=== PATIENT | male | born 1970 | race Caucasian/White ===

== ENCOUNTER 2017-07-24 21:34 | Emergency (ER) | payer BC ==
[~2017-07-24] VITALS: Ht 185.4 cm; Wt 92.5 kg
[2017-07-24 22:10] VITALS: BP 125/68
[2017-07-24] MEDS ORDERED: Augmentin 875mg Tab ORAL ONE (22:15)
[2017-07-24 22:25] VITALS: BP 124/69
[2017-07-24] MEDS ORDERED: ACETAMINOPHEN-1 EAC1 ORAL (22:29)
[2017-07-24] MEDS ORDERED: AUGMENTIN 875-1 EAC1 ORAL (22:29)
[2017-07-24 22:32] VITALS: BP 124/69
--- NOTE | 2017-07-25 05:43 | Emergency Room Report ---
History of Present Illness General Chief Complaint: Skin Rash/Abscess Source: Patient Present Illness HPI 46-year-old male presents ED with pain and swelling to left side of face 1 day. Started out as a small pimple which got progressively larger. Pain is throbbing, 7 out of 10, nonradiating. Denies fevers or chills. Denies any discharge. Denies any tooth pain. Denies any neck stiffness. No other aggravating relieving factors. Denies any other associated symptoms Allergies: Coded Allergies: No Known Allergies (Unverified , 07/24/17) Patient History Past Medical History: none Past Surgical History: none Pertinent Family History: none Social History: Denies: smoking, alcohol use, drug use Immunizations: UTD Reviewed Nursing Documentation: PMH: Agreed, PSxH: Agreed Nursing Documentation-PMH Past Medical History: No Stated History Review of Systems All Other Systems: negative except mentioned in HPI Physical Exam Vital Signs Date Time Temp Pulse Resp B/P (MAP) Pulse Ox O2 Delivery O2 Flow Rate FiO2 07/24/17 21:47 100.0 98 18 126/63 99 Room Air 100.0 Sp02 EP Interpretation: reviewed, normal General Appearance: no apparent distress, alert, GCS 15, non-toxic Head: normocephalic Eyes: bilateral eye normal inspection, bilateral eye PERRL ENT: normal ENT inspection Neck: full range of motion, supple/symm/no masses Respiratory: normal inspection Cardiovascular #1: normal inspection Gastrointestinal: normal inspection Rectal: deferred Genitourinary: no CVA tenderness Musculoskeletal: normal inspection Neurologic: alert, oriented x3, responsive, motor strength/tone normal, sensory intact, speech normal Psychiatric: judgement/insight normal, memory normal, mood/affect normal, no suicidal/homicidal ideation Skin: other - swelling/induration to L cheek. no fluctuance. no discharge Lymphatic: normal inspection Medical Decision Making Diagnostic Impression: Primary Impression: Facial cellulitis ER Course Hospital Course 46-year-old male presents to ED with pain/swelling to L cheek Differential diagnoses include: Cellulitis, dermatitis, insect bite, abscess Clinical course Patient placed on stretcher. After initial history, physical exam reveals a male in no acute distress. On exam there is swelling and induration to left cheek. No fluctuance. No discharge. No evidence of dental involvement. Likely cellulitis. Do not believe IUD is indicated at this time. We'll treat with antibiotics but recommend close follow-up with PMD and/or return to ED if gets progressively bigger Patient given Augmentin ED Diagnosis - facial cellulitis stable and discharged to home with prescription for Augmentin, Tylenol #3. warm compresses. Instructed to followup with PMD. Instructed return to ED if symptoms recur or worsen Last Vital Signs Date Time Temp Pulse Resp B/P (MAP) Pulse Ox O2 Delivery O2 Flow Rate FiO2 07/24/17 22:32 99.8 84 16 124/69 99 Room Air 99.8 Status: improved Disposition: HOME, SELF-CARE Condition: Stable Scripts Acetaminophen With Codeine (T#3) (TYLENOL #3 TAB*) Y Tab 1 TAB ORAL Q8H Y for For Pain, #20 TAB Prov: JUSTYNA BIANCHI M.D. 07/24/17 Amoxicillin/Potassium Clav 875-125* (AUGMENTIN 875-125 TABLET*) 1 Each Tablet 1 TAB ORAL TWICE A DAY for 10 Days, #20 TAB Prov: JUSTYNA BIANCHI M.D. 07/24/17 Referrals: NON PHYSICIAN (PCP) Patient Instructions: Cellulitis, [id number] JUSTYNA BIANCHI M.D. Jul 25, 2017 05:42
== END 2017-07-24 22:50 | disposition home or self-care (01) ==
LOC: EMR 22:05
DX: L03.211 Cellulitis of face (principal)
CPT/HCPCS: 99284

== ENCOUNTER 2017-08-12 14:23 | Emergency (ER) | payer BC ==
[~2017-08-12] VITALS: Ht 185.4 cm; Wt 95.3 kg
[~2017-08-12 14:23] MED LIST: ACETAMINOPHEN-1 EAC1 ORAL; AUGMENTIN 875-1 EAC1 ORAL
[2017-08-12] MEDS ORDERED: BENADRYL25 MG ORAL (14:57)
[2017-08-12] MEDS ORDERED: PREDNISONE20 MG ORAL (14:57)
[2017-08-12] MEDS ORDERED: DOXYCYCLINE MO100 MG ORAL (14:58)
[2017-08-12 15:03] VITALS: BP 118/67
--- NOTE | 2017-08-12 15:29 | Emergency Room Report ---
History of Present Illness General Chief Complaint: Skin Rash/Abscess Source: Patient Present Illness HPI This is a 46-year-old male who presented after increased lip swelling. Patient gradual onset of symptoms over the past few days. Patient recent the similar symptoms and was previously taking Augmentin. The patient denied any current fever. He reported having increased facial swelling. Allergies: Coded Allergies: No Known Allergies (Unverified , 07/24/17) Patient History Past Medical History: see triage record Reviewed Nursing Documentation: PMH: Agreed; PSxH: Agreed Nursing Documentation-PMH Past Medical History: No Stated History Review of Systems All Other Systems: negative except mentioned in HPI Physical Exam Vital Signs Date Time Temp Pulse Resp B/P (MAP) Pulse Ox O2 Delivery O2 Flow Rate FiO2 08/12/17 14:26 98.2 78 18 121/72 97 Room Air 98.2 General Appearance: well appearing, no apparent distress, alert, GCS 15 Head: normocephalic, atraumatic ENT: hearing grossly normal, normal voice, other - lip swelling Neck: full range of motion, supple Respiratory: no respiratory distress, speaking full sentences Musculoskeletal: no calf tenderness Neurologic: normal gait Psychiatric: mood/affect normal Skin: other - right upper extremity papular rash. Medical Decision Making Diagnostic Impression: Primary Impression: Allergic angioedema ER Course Patient presented for facial swelling. Differential diagnosis included was not limited to abscess, angioedema, allergic reaction, foreign body, among others. Patient has a benign exam and does not appear to require any further imaging or laboratory testing at this time. The patient does not appear to have any respiratory distress. Lip was noted to have isolated swelling without any fluctuance. The patient was given prescriptions for Benadryl as well as prednisone. He was advised to discontinue ibuprofen use. He is given a prescription of doxycycline for what appears to be a folliculitis to his right upper extremity. The patient is advised to follow up with primary care doctor in 1-2 days. Patient is advised to return if any worsening condition or if any changes in status that are concerning. This report is dictated with [employer] airport screener software which may occasionally lead to discrepancies related to use of this software. Last Vital Signs Date Time Temp Pulse Resp B/P (MAP) Pulse Ox O2 Delivery O2 Flow Rate FiO2 08/12/17 15:03 79 16 118/67 97 Room Air Status: improved Disposition: HOME, SELF-CARE Condition: Stable Scripts Doxycycline Monohydrate* (DOXYCYCLINE MONOHYDRATE*) 100 Mg Capsule 100 MG ORAL Q12H, #14 CAP 0 Refills Prov: Kris De La Rosa 08/12/17 Prednisone* (PREDNISONE*) 20 Mg Tablet 40 MG ORAL DAILY, #10 TAB Prov: Kris De La Rosa 08/12/17 Diphenhydramine Hcl* (BENADRYL*) 25 Mg Capsule 50 MG ORAL Q6H PRN for Itching, #30 CAP Prov: Kris De La Rosa 08/12/17 Patient Instructions: Angioedema Kris De La Rosa Aug 12, 2017 15:29
== END 2017-08-12 15:15 | disposition home or self-care (01) ==
LOC: EMR 15:10
DX: T78.3XXA Angioneurotic edema, initial encounter (principal); R21 Rash and other nonspecific skin eruption
CPT/HCPCS: 99284

== ENCOUNTER 2017-10-18 05:42 | Inpatient (IN) | payer OTHER ==
[2017-10-18] VITALS (15 sets, daily range): BP systolic 123–158; BP diastolic 79–93
[~2017-10-18] VITALS: Ht 185.4 cm; Wt 95.3 kg
[~2017-10-18 05:42] MED LIST changes: +BENADRYL25 MG ORAL; +DOXYCYCLINE MO100 MG ORAL; +PREDNISONE20 MG ORAL
[2017-10-18] MEDS ORDERED: Vancomycin 1gm inj IVPB ONE (06:53)
[2017-10-18] MEDS ORDERED: Pantoprazole Inj ONE (06:54)
[2017-10-18] MEDS ORDERED: TESTOSTERO200 MG/1 M IM (06:58)
[2017-10-18] MEDS ORDERED: LEXAPRO20 MG ORAL (06:58)
[2017-10-18] MEDS ORDERED: Vancomycin 1 GM in NS 275 ML IVPB ONE (07:00)
[2017-10-18] MEDS ORDERED: Pantoprazole Inj IVP ONE (07:00)
[2017-10-18] MEDS ORDERED: Midazolam 2mg/2ml Inj ONE (07:04)
[2017-10-18] MEDS ORDERED: fentaNYL 100 mcg/2 mL IV ONE ×2 (07:04→15:04)
[2017-10-18] MEDS ORDERED: Lidocaine 1% MPF 10mg/ml 5ml ONE (07:05)
[2017-10-18] MEDS ORDERED: EPINEPHrine 1mg/1ml Amp ONE (07:06)
[2017-10-18] MEDS ORDERED: Thrombin 5000 units spray kit TOPIC ONE (07:06)
[2017-10-18] MEDS ORDERED: Heparin 1000 units/ml 1ml Vial ONE (07:06)
[2017-10-18] MEDS ORDERED: Thrombin 5000 units TOPIC ONE ×4 (07:07→11:52)
[2017-10-18] MEDS ORDERED: Bupivacaine 0.5% Inj 30 ml vial INJ ONE (07:07)
[2017-10-18] MEDS ORDERED: Bacitracin 50000 Units Vial ONE ×2 (07:07→09:55)
[2017-10-18] MEDS ORDERED: Gelfoam Absorbable 1gm powder pkt TOPIC ONE (07:09)
--- NOTE | 2017-10-18 07:55 | Pre-Procedure Note/Attestation ---
Pre-Procedure Note/Attestation Complete Prior to Procedure Planned Procedure: bilateral Procedure Narrative: Redo posterior lumbar decompression bilateral at L4-5, with interbody cage and pedicle screw fixation at L4-5, posterolateral arthrodesis, use of allograft, autograft and iliac crest bone marrow aspirate and removal of interspinous device at L4-5 Attestation I attest that I discussed the nature of the procedure; its benefits; risks and complications; and alternatives (and the risks and benefits of such alternatives ), prior to the procedure, with the patient (or the patient's legal self pay representative). I attest that, if there was a reasonable possibility of needing a blood transfusion, the patient (or the patient's legal self pay representative) was given the [place] Department [employer] Services standardized written summary, pursuant to the Wilfred Frankie Blood Safety Act ([place] Health and Safety Code # 1645, as amended). I attest that I re-evaluated the patient just prior to the surgery and that there has been no change in the patient's H&P, except as documented below: ERICKA MAX Oct 18, 2017 07:55
--- NOTE | 2017-10-18 07:57 | Anethesia Preoperative Eval ---
Anesthesia Pre-op PMH/ROS General Date of Evaluation: Oct 18, 2017 Time of Evaluation: 07:22 Anesthesiologist: Rosa ASA Score: ASA 2 Mallampati Score Class I : Soft palate, uvula, fauces, pillars visible Class II: Soft palate, uvula, fauces visible Class III: Soft palate, base of uvula visible Class IV: Only hard plate visible Mallampati Classification: Class II Surgeon: Vicki Diagnosis: Lumbar radiculopathy Surgical Procedure: Revision of posterior lumbar fusion L4-L5 with hardwear removal Anesthesia History: none Family History: no anesthesia problems Allergies: Coded Allergies: No Known Allergies (Unverified , 07/24/17) Medications: see eMAR Past Medical History Cardiovascular: Denies: HTN, CAD, MO, valve dz, arrhythmia, other Pulmonary: Denies: asthma, COPD, SLY, other Gastrointestinal/Genitourinary: Reports: GERD - mild; Denies: CRI, ESRD, other Neurologic/Psychiatric: Reports: depression/anxiety; Denies: dementia, CVA, TIA, other Endocrine: Denies: DM, hypothyroidism, steroids, other HEENT: Denies: cataract (L), cataract (R), glaucoma, POARCH (L), POARCH (R), other Hematology/Immune: Denies: anemia, DVT, bleeding disorder, other Musculoskeletal/Integumentary: Denies: OA, RA, DJD, DDD, edema, other PMH Narrative: as above PSxH Narrative: ACDF, Lumbar spine fusion septoplasty Anesthesia Pre-op Phys. Exam Physician Exam Last Vital Signs Date Time Temp Pulse Resp B/P (MAP) Pulse Ox O2 Delivery O2 Flow Rate FiO2 10/18/17 06:29 97.3 73 18 123/79 96 Room Air 97.3 Constitutional: NAD Neurologic: CN 2-12 intact Cardiovascular: RRR, no M/R/G Respiratory: CTA Gastrointestinal: S/NT/ND Airway Exam Mallampati Score: Class II MO: full Neck: stiff, s/p fusion ROM: limited Teeth: missing Dentures: no upper, no lower Anesthesia Pre-op A/P Labs see chart Studies Pre-op Studies: EKG - NSR, CXR - WNL Risk Assessment & Plan Assessment: ASA 2 Plan: GA with ETT neuromonitoring Status Change Before Surgery: No Pre-Antibiotics Drug: Vancomycin 1gr. Given Within 1 Hr of Incision: Yes Time Given: 08:12 Faraz Lee MD Oct 18, 2017 07:57
[2017-10-18] MEDS ORDERED: Zemuron 50mg/5ml Inj IV ONE (08:00)
[2017-10-18] MEDS ORDERED: LR 1000ml ONE (08:00)
[2017-10-18] MEDS ORDERED: Sterile Water Irrig 1000ml IRRIG ONE (08:00)
[2017-10-18] MEDS ORDERED: NS Irrig 1000ml ONE (08:00)
[2017-10-18] MEDS ORDERED: Propofol 1,000mg/ 100ml btl IV ONE (08:00)
[2017-10-18] MEDS ORDERED: Dexamethasone 4mg/ml vial ONE (08:42)
[2017-10-18] MEDS ORDERED: Glycopyrrolate 0.2mg/ml 1ml Vial ONE (09:08)
[2017-10-18] MEDS ORDERED: Morphine Sulfate 10mg/ml Inj ONE (09:08)
[2017-10-18] MEDS ORDERED: Sodium Chloride 10ml vial INJ ONE (09:08)
[2017-10-18] MEDS ORDERED: LR 1000ml 1,000 ML IVLG SCH ×2 (09:21→16:45)
[2017-10-18] MEDS ORDERED: DiphenhydrAMINE 50mg/ml Inj IVP PRN ×3 (09:30→16:45)
[2017-10-18] MEDS ORDERED: Midazolam 2mg/2ml Inj IVP PRN ×2 (09:30→16:45)
[2017-10-18] MEDS ORDERED: Metoclopramide 10mg/2ml Inj IVP PRN ×2 (09:30→16:45)
[2017-10-18] MEDS ORDERED: Ketorolac 30mg Inj IV PRN ×2 (09:30→16:45)
[2017-10-18] MEDS ORDERED: fentaNYL 100 mcg/2 mL IV PRN ×2 (09:30→16:45)
[2017-10-18] MEDS ORDERED: Meperidine 50mg/ml Inj(FOR RIGORS ONLY) IV PRN ×2 (09:30→16:45)
[2017-10-18] MEDS ORDERED: Acetaminophen (Non formulary) 100 ML IV ONE (09:30)
[2017-10-18] MEDS ORDERED: Propofol 200mg/20ml IV ONE ×6 (10:15→14:23)
[2017-10-18] MEDS ORDERED: Ketorolac 30mg Inj ONE (10:28)
[2017-10-18] MEDS ORDERED: Bacitracin Oint 15gm Tube TOPIC ONE (10:55)
[2017-10-18] MEDS ORDERED: Rate Change PCA 1 Each MISC PRN (16:00)
[2017-10-18] MEDS ORDERED: Morphine Sulfate 2mg/ml Inj IVP PRN (16:00)
[2017-10-18] MEDS ORDERED: LORazepam 1mg tab ORAL PRN (16:00)
[2017-10-18] MEDS ORDERED: Naloxone 0.4mg/ml Inj IVP PRN (16:00)
--- NOTE | 2017-10-18 16:34 | Immediate Post-Op Evaluation ---
Immediate Post-Op Evalulation Immediate Post-Op Evalulation Procedure: Revision of L4-L5 fusion with decompression and removal of retained hardwea Date of Evaluation: Oct 18, 2017 Time of Evaluation: 16:33 IV Fluids: 1600 Blood Products: none Estimated Blood Loss: 300 Urinary Output: 700 Blood Pressure Systolic: 140 Blood Pressure Diastolic: 82 Pulse Rate: 88 Respiratory Rate: 20 O2 Sat by Pulse Oximetry: 100 Temperature (Fahrenheit): 98.8 Pain Score (1-10): 2 Nausea: No Vomiting: No Complications none Patient Status: reacts, patent, extubated, none Hydration Status: adequate Faraz Lee MD Oct 18, 2017 16:34
[2017-10-18] MEDS: PCA Morphine 1mg/ml 30 ML IV PRN (16:51)
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
[2017-10-18] MEDS ORDERED: Milk of Magnesia 30ml Ud ORAL PRN (17:00)
[2017-10-18] MEDS ORDERED: traMADol 50mg tab ORAL PRN (17:00)
[2017-10-18] MEDS ORDERED: HYDROcodone/Acetamin 7.5/325 tab ORAL PRN ×2 (17:00)
--- NOTE | 2017-10-18 17:28 | General Progress Note ---
Progress Note Progress Note Neurosurgery S/ Comfortable. Right shoulder feels pain. Chest swollen. No headcahes O/ Vs: Last 24 Hour Vital Signs Date Time Temp Pulse Resp B/P (MAP) Pulse Ox O2 Delivery O2 Flow Rate FiO2 10/18/17 16:51 19 10/18/17 16:51 98.8 10/18/17 16:50 87 15 139/85 100 Nasal Cannula 3 10/18/17 16:40 86 17 138/82 100 Simple Mask 6 10/18/17 16:34 209.8 88 20 100 10/18/17 16:30 88 13 140/83 100 Simple Mask 6 10/18/17 16:25 90 15 136/82 100 Simple Mask 6 10/18/17 16:18 97.8 92 22 138/80 100 Simple Mask 6 97.8 10/18/17 06:29 97.3 73 18 123/79 96 Room Air 97.3 Alert and oriented x 4 Moves al extremities well normal sensation. HV drains minimal output. admit to floor when cleared ice to the shoulder, lumbar incision and chest. ERICKA MAX Oct 18, 2017 17:28
[2017-10-18] MEDS ORDERED: Dexamethasone 4mg/ml vial IVP ONE (18:00)
--- NOTE | 2017-10-18 20:34 | General Progress Note ---
Assessment/Plan Status Narrative s/p spine surgery perioperative antibiotic given postoperative dvt prophyalxis with rafael sullivan and scd monitor adilene esquivel lexaopro Subjective Date patient seen: Oct 18, 2017 Time patient seen: 20:31 Allergies: Coded Allergies: No Known Allergies (Unverified , 07/24/17) Subjective toplerating the pain wants to take his lexapro Objective Last 24 Hour Vital Signs Date Time Temp Pulse Resp B/P (MAP) Pulse Ox O2 Delivery O2 Flow Rate FiO2 10/18/17 19:09 97.3 68 18 137/87 99 97.3 10/18/17 18:00 98.8 10/18/17 18:00 97.2 80 15 157/87 100 Nasal Cannula 3 97.2 10/18/17 17:30 82 17 153/86 100 Nasal Cannula 3 10/18/17 17:15 75 15 158/90 100 Nasal Cannula 3 10/18/17 17:00 77 14 155/89 100 Nasal Cannula 3 10/18/17 16:51 19 10/18/17 16:51 98.8 10/18/17 16:50 87 15 139/85 100 Nasal Cannula 3 10/18/17 16:40 86 17 138/82 100 Simple Mask 6 10/18/17 16:34 209.8 88 20 100 10/18/17 16:30 88 13 140/83 100 Simple Mask 6 10/18/17 16:25 90 15 136/82 100 Simple Mask 6 10/18/17 16:18 97.8 92 22 138/80 100 Simple Mask 6 97.8 10/18/17 06:29 97.3 73 18 123/79 96 Room Air 97.3 Height (Feet): 6 Height (Inches): 1.00 Weight (Pounds): 210 General Appearance: WD/WN Cardiovascular: no JVD Respiratory/Chest: lungs clear Abdomen: soft Extremities: other - no edema Moi Sargent MD Oct 18, 2017 20:34
[2017-10-18] MEDS: Docusate Sod/Senna tab ORAL SCH (20:36)
[2017-10-18] MEDS: Docusate 100mg cap ORAL SCH (20:36)
[2017-10-18] MEDS: NS w/KCl 20mEq 1,000 ML IV SCH (20:36)
[2017-10-18] MEDS: Vancomycin 1 GM in D5W 275 ML IVPB SCH (20:48)
[2017-10-18] MEDS ORDERED: PCA Education Pamphlet MISC ONE (21:00)
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
[2017-10-19] VITALS: BP 137/88
[2017-10-19 04:00] VITALS: BP 140/90
[2017-10-19] MEDS: PCA Morphine 1mg/ml 30 ML IV PRN (05:20)
[2017-10-19] MEDS: NS w/KCl 20mEq 1,000 ML IV SCH ×2 (06:10→16:30)
[2017-10-19] MEDS ORDERED: PCA shift volume MISC SCH (07:00)
[2017-10-19 07:05] LABS: ANION GAP 4 mmol/L (5-15); BLOOD UREA NITROGEN 17 mg/dL (7-18); CARBON DIOXIDE 30 MMOL/L (21-32); CHLORIDE 102 MMOL/L (98-107); CREATININE 0.9 MG/DL (0.55-1.30); POTASSIUM 4.2 MMOL/L (3.5-5.1); SODIUM 136 MMOL/L (136-145)
--- NOTE | 2017-10-19 07:39 | 48 Hour Post Anesthesia Eval ---
Post Anesthesia Evaluation Procedure: Revision of L4-L5 fusion with decompression and removal of retained hardwea Date of Evaluation: Oct 19, 2017 Time of Evaluation: 07:37 Blood Pressure Systolic: 136 0: 78 Pulse Rate: 76 Respiratory Rate: 20 Temperature (Fahrenheit): 97.8 O2 Sat by Pulse Oximetry: 98 Airway: patent Nausea: No Vomiting: No Pain Intensity: 4 Hydration Status: adequate Cardiopulmonary Status: stable Mental Status/LOC: patient returned to baseline Follow-up Care/Observations: n/a Post-Anesthesia Complications: none Follow-up care needed: N/A Faraz Lee MD Oct 19, 2017 07:39
[2017-10-19 08:00] VITALS: BP 135/85
[2017-10-19] MEDS: Docusate 100mg cap ORAL SCH ×2 (08:03→18:00)
[2017-10-19] MEDS: Docusate Sod/Senna tab ORAL SCH ×2 (08:03→18:00)
[2017-10-19] MEDS: Cyclobenzaprine 10mg Tab ORAL PRN ×3 (08:04→19:43)
[2017-10-19 08:10] LABS: BASOPHILS % (AUTO) 0.5 % (0.0-2.0); EOSINOPHILS % (AUTO) 0.1 % (0.0-3.0); HEMATOCRIT 48.9 % (42.0-52.0); HEMOGLOBIN 16.8 G/DL (14.2-18.0); LYMPHOCYTES % (AUTO) 11.5 % (20.0-45.0); MEAN CORPUSCULAR VOLUME 95 FL (80-99); MONOCYTES % (AUTO) 7.3 % (1.0-10.0); NEUTROPHILS % (AUTO) 80.7 % (45.0-75.0); PLATELET COUNT 211 K/UL (150-450); RED BLOOD COUNT 5.14 M/UL (4.70-6.10); RED CELL DISTRIBUTION WIDTH 11.2 % (11.6-14.8)
[2017-10-19] MEDS: Vancomycin 1 GM in D5W 275 ML IVPB SCH (08:19)
[2017-10-19 12:00] VITALS: BP 124/73
--- NOTE | 2017-10-19 14:36 | General Progress Note ---
Progress Note Progress Note Neurosurgery POD #1 S/ Muscl espasms. Chest and right shoulder pain/tightness much better. Ambulated with PT O/ Vs. Last 24 Hour Vital Signs Date Time Temp Pulse Resp B/P (MAP) Pulse Ox O2 Delivery O2 Flow Rate FiO2 10/19/17 08:04 97.8 10/19/17 07:39 208.0 76 20 98 10/19/17 04:00 18 10/19/17 04:00 98.1 88 18 140/90 98 Nasal Cannula 3.0 98.1 10/19/17 00:00 97.8 90 20 137/88 98 Room Air 97.8 10/19/17 00:00 18 10/18/17 20:00 97.3 81 18 143/93 100 Nasal Cannula 3.0 97.3 10/18/17 20:00 18 10/18/17 19:09 97.3 68 18 137/87 99 97.3 10/18/17 19:00 97.2 80 16 151/86 96 Nasal Cannula 3 97.2 10/18/17 18:30 97.5 80 17 156/88 98 Nasal Cannula 3 97.5 10/18/17 18:15 97.3 80 14 154/85 97 Nasal Cannula 3 97.3 10/18/17 18:00 98.8 10/18/17 18:00 97.2 80 15 157/87 100 Nasal Cannula 3 97.2 10/18/17 17:30 82 17 153/86 100 Nasal Cannula 3 10/18/17 17:30 16 10/18/17 17:25 14 10/18/17 17:15 75 15 158/90 100 Nasal Cannula 3 10/18/17 17:05 15 10/18/17 17:00 77 14 155/89 100 Nasal Cannula 3 10/18/17 16:51 19 10/18/17 16:51 98.8 10/18/17 16:50 87 15 139/85 100 Nasal Cannula 3 10/18/17 16:40 86 17 138/82 100 Simple Mask 6 10/18/17 16:34 209.8 88 20 100 10/18/17 16:30 88 13 140/83 100 Simple Mask 6 10/18/17 16:25 90 15 136/82 100 Simple Mask 6 10/18/17 16:18 97.8 92 22 138/80 100 Simple Mask 6 97.8 Alert and oriented x 4 Moves all extremities well. Decreased range of motion R shoulder due topain. No swelling Red chest numbness much better lower extremity strength is 5/5. Uppers are 5/5 except for right shoulder muscles deltoid because of pain...improving sensory grossly normal in th euppers and lowers HV drains removed and new dressing applied Incision is C/D/I doing better pain control D/c Falafel Cart Cook Milan removed HV drains removed Lumbar brace. ERICKA MAX Oct 19, 2017 14:36
--- NOTE | 2017-10-19 14:38 | Diagnostic Imaging Report ---
Indication: Back pain, intraoperative Technique: Intraoperative imaging Comparison: none Findings: Intraoperative images demonstrate markers posterior to L4 and L5 and a prosthesis between the L5 and S1 spinous processes.. Subsequent images demonstrate posterior fusion hardware at L4-5 with a disc spacer, removal of the spinous processes hardware. Impression: Intraoperative imaging, as described
[2017-10-19 16:00] VITALS: BP 124/68
[2017-10-19] MEDS ORDERED: Tubing IV Secondary IV ONE (16:32)
[2017-10-19] MEDS ORDERED: Norco 5mg/325mg tab ORAL PRN (19:00)
[2017-10-19] MEDS ORDERED: ALPRAZolam 0.5mg tab ORAL PRN (19:45)
[2017-10-19 20:00] VITALS: BP 147/94
[2017-10-19] MEDS ORDERED: Metamucil Pkt ORAL SCH (20:00)
[2017-10-20] VITALS: BP 153/83
[2017-10-20] MEDS: HYDROcodone/Acetamin 10/325 tab ORAL PRN ×3 (00:41→11:20)
[2017-10-20 04:00] VITALS: BP 156/89
[2017-10-20] MEDS: Cyclobenzaprine 10mg Tab ORAL PRN (04:41)
[2017-10-20 08:00] VITALS: BP_SYST 128; BP_SYST 141; BP_DIAS 87; BP_DIAS 93
[2017-10-20] MEDS: Docusate Sod/Senna tab ORAL SCH ×2 (08:26→18:11)
[2017-10-20] MEDS: Docusate 100mg cap ORAL SCH (08:26)
[2017-10-20] MEDS: Metamucil Pkt ORAL SCH ×3 (09:29→18:11)
[2017-10-20] MEDS ORDERED: Docusate 250mg cap ORAL SCH ×2 (09:30→18:00)
[2017-10-20 12:00] VITALS: BP_SYST 130; BP_SYST 150; BP_DIAS 90
[2017-10-20 16:00] VITALS: BP 143/83
--- NOTE | 2017-10-20 19:32 | General Progress Note ---
Progress Note Progress Note Neurosurgery S/ Doing much better. Ambulated without assist several times. Positive flatus but no BM. No Leg pain. Feels stronger in the left leg. R shoulder arm pain much better O/ vs: Last 24 Hour Vital Signs Date Time Temp Pulse Resp B/P (MAP) Pulse Ox O2 Delivery O2 Flow Rate FiO2 10/20/17 18:13 98.1 10/20/17 16:00 98.1 90 18 143/83 97 Room Air 98.1 10/20/17 15:15 98.8 10/20/17 14:16 98.8 10/20/17 12:19 98.8 10/20/17 12:00 97.5 88 20 150/90 96 Room Air 97.5 10/20/17 11:20 98.8 10/20/17 08:00 97.3 90 18 141/87 97 Room Air 97.3 10/20/17 04:00 97.5 96 20 156/89 98 Room Air 97.5 10/20/17 00:00 98.9 94 20 153/83 98 Room Air 98.9 10/19/17 20:00 98.0 86 20 147/94 98 Room Air 98.0 10/19/17 19:43 97.9 Alert and oriented moves all extremities well incision dressing intact. Anterior chest redness improved non-tender. Lower extremity sensation improved in the left leg. A/P s/p complex lumbar fusion and removal of hardware doing very well d/d instructions reviewed with pt and nursing. ERICKA MAX Oct 20, 2017 19:32
[2017-10-20 20:00] VITALS: BP 154/74
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
== END 2017-10-20 21:30 | disposition home or self-care (01) | DRG 460 ==
LOC: SDSOVERFLO 05:42 → 3E 18:31
PROC: 0SP004Z Removal of Internal Fixation Device from Lumbar Vertebral Joint, Open Approach (ICD-10-PCS; principal; 2017-10-18 07:30)
PROC: 0SG00AJ Fusion of Lumbar Vertebral Joint with Interbody Fusion Device, Posterior Approach, Anterior Column, Open Approach (ICD-10-PCS; principal; 2017-10-18 07:30)
PROC: 07DR3ZZ Extraction of Iliac Bone Marrow, Percutaneous Approach (ICD-10-PCS; principal; 2017-10-18 07:30)
PROC: 0ST20ZZ Resection of Lumbar Vertebral Disc, Open Approach (ICD-10-PCS; principal; 2017-10-18 07:30)
PROC: 01NB0ZZ Release Lumbar Nerve, Open Approach (ICD-10-PCS; principal; 2017-10-18 07:30)
DX: M43.16 Spondylolisthesis, lumbar region (principal); M54.16 Radiculopathy, lumbar region; Z98.1 Arthrodesis status; M48.061 Spinal stenosis, lumbar region without neurogenic claudication; V89.2XXS Person injured in unspecified motor-vehicle accident, traffic, sequela
CPT/HCPCS: 36415; 72020; 76001; 80048; 83735; 85025; 86850; 86900; 86901; 87081; C9399; J1580; J2250; J2405

== ENCOUNTER 2019-02-28 05:47 | Inpatient (IN) | payer OTHER ==
[2019-02-28] VITALS (13 sets, daily range): BP systolic 94–121; BP diastolic 57–73
[~2019-02-28] VITALS: Ht 180.3 cm; Wt 83.5 kg
[~2019-02-28 05:47] MED LIST changes: +LEXAPRO20 MG ORAL; +TESTOSTERO200 MG/1 M IM
[2019-02-28] MEDS ORDERED: Pantoprazole Inj IVP ONE (06:00)
[2019-02-28] MEDS ORDERED: Vancomycin 1gm/D5W 275ml IVPB ONE ×2 (06:00)
[2019-02-28] MEDS ORDERED: ADDERAL20 MG ORAL (06:42)
[2019-02-28] MEDS ORDERED: Propofol 1,000mg/ 100ml btl IV ONE (07:00)
[2019-02-28] MEDS ORDERED: Gelatin Sponge,Absorbable Syr TP ONE ×2 (07:00→09:03)
[2019-02-28] MEDS ORDERED: Lacri-Lube Opth Oint 3.5gm ONE (07:04)
[2019-02-28] MEDS ORDERED: Pantoprazole Inj ONE (07:04)
[2019-02-28] MEDS ORDERED: Rocuronium Bromide 50mg/5ml Inj IV ONE ×2 (07:05→09:23)
[2019-02-28] MEDS ORDERED: Succinylcholine 20mg/ml 10ml vial ONE (07:05)
[2019-02-28] MEDS ORDERED: fentaNYL 100 mcg/2 mL IV ONE ×2 (07:15→08:53)
[2019-02-28] MEDS ORDERED: Midazolam 2mg/2ml Inj ONE (07:15)
[2019-02-28] MEDS ORDERED: Lidocaine 1% MPF 10mg/ml 5ml ONE (07:17)
[2019-02-28] MEDS ORDERED: Thrombin 5000 units spray kit TOPIC ONE ×2 (07:41→09:32)
[2019-02-28] MEDS ORDERED: Bacitracin 50000 Units Vial ONE (07:41)
[2019-02-28] MEDS ORDERED: Bacitracin Oint 15gm Tube TOPIC ONE (07:41)
[2019-02-28] MEDS ORDERED: Gelfoam Size TOPIC ONE (07:41)
[2019-02-28] MEDS ORDERED: Thrombin 5000 units TOPIC ONE (07:41)
[2019-02-28] MEDS ORDERED: Heparin 1000 units/ml 1ml Vial ONE (07:41)
[2019-02-28] MEDS ORDERED: Bupivacaine w/Epi 0.5% 30ml Vial INJ ONE ×2 (07:42→11:48)
[2019-02-28] MEDS ORDERED: Sterile Water For Irrig 2000ml IRRIG ONE (08:00)
[2019-02-28] MEDS ORDERED: LR 1000ml ONE (08:00)
[2019-02-28] MEDS ORDERED: NS Irrig 1000ml ONE (08:00)
--- NOTE | 2019-02-28 08:01 | Anethesia Preoperative Eval ---
Anesthesia Pre-op PMH/ROS General Date of Evaluation: Feb 28, 2019 Time of Evaluation: 07:56 Anesthesiologist: Rosa ASA Score: ASA 2 Mallampati Score Class I : Soft palate, uvula, fauces, pillars visible Class II: Soft palate, uvula, fauces visible Class III: Soft palate, base of uvula visible Class IV: Only hard plate visible Mallampati Classification: Class II Surgeon: Vicki Diagnosis: Cervical radiculopathy Surgical Procedure: Posterior cervical decompression fusion Anesthesia History: none Family History: no anesthesia problems Allergies: Coded Allergies: No Known Allergies (Unverified , 02/27/19) Medications: see eMAR Patient NPO?: Yes NPO Date: Feb 27, 2019 NPO Time: 2358 Past Medical History Cardiovascular: Denies: HTN, CAD, [place], valve dz, arrhythmia, other Pulmonary: Denies: asthma, COPD, SLY, other Gastrointestinal/Genitourinary: Reports: GERD - mild; Denies: CRI, ESRD, other Neurologic/Psychiatric: Reports: other - chronic pain; Denies: dementia, CVA, depression/anxiety, TIA Endocrine: Denies: DM, hypothyroidism, steroids, other HEENT: Denies: cataract (L), cataract (R), glaucoma, [place] (L), [place] (R), other Hematology/Immune: Reports: anemia - mild; Denies: DVT, bleeding disorder, other Musculoskeletal/Integumentary: Denies: OA, RA, DJD, DDD, edema, other PMH Narrative: as above PSxH Narrative: ACDF, lumbar spine x2, septoplasty Anesthesia Pre-op Phys. Exam Physician Exam Last Vital Signs Date Time Temp Pulse Resp B/P (MAP) Pulse Ox O2 Delivery O2 Flow Rate FiO2 02/28/19 06:40 Room Air 02/28/19 06:22 97.8 60 18 100/66 (77) 99 Constitutional: NAD Neurologic: CN 2-12 intact Cardiovascular: RRR, no M/R/G Respiratory: CTA Gastrointestinal: S/NT/ND Airway Exam Mallampati Score: Class II MO: full Neck: stiff s/p fusion ROM: limited Dentures: no upper, no lower Anesthesia Pre-op A/P Labs see chart Studies Pre-op Studies: EKG - NSR Risk Assessment & Plan Assessment: ASA 2 Plan: GA with ETT neuromonitoring Status Change Before Surgery: No Pre-Antibiotics Drug: Vancomycin 1gr. Gentamycin 80mg. Given Within 1 Hr of Incision: Yes Faraz Lee MD Feb 28, 2019 08:01
--- NOTE | 2019-02-28 08:05 | Pre-Procedure Note/Attestation ---
Pre-Procedure Note/Attestation Complete Prior to Procedure Planned Procedure: bilateral Procedure Narrative: posterior cervical decompressive surgery left side at C56 and C67 levels with lateral mass fixation and posterior arthrodesis with use of allograft, autograft and iliac crest bone marrow from C5 to C7 Attestation I attest that I discussed the nature of the procedure; its benefits; risks and complications; and alternatives (and the risks and benefits of such alternatives ), prior to the procedure, with the patient (or the patient's legal roofing sales representative). I attest that, if there was a reasonable possibility of needing a blood transfusion, the patient (or the patient's legal roofing sales representative) was given the [place] [employer] standardized written summary, pursuant to the [place] Blood Safety Act ([place] Health and Safety Code # 1645, as amended). I attest that I re-evaluated the patient just prior to the surgery and that there has been no change in the patient's H&P, except as documented below: Lauren Cohen MD Feb 28, 2019 08:05
[2019-02-28] MEDS ORDERED: Dexamethasone 4mg/ml vial ONE (08:40)
[2019-02-28] MEDS ORDERED: Morphine Sulfate 10mg/ml Inj ONE (09:28)
[2019-02-28] MEDS ORDERED: Neostigmine 1mg/ml 10ml Inj ONE (09:30)
[2019-02-28] MEDS ORDERED: Glycopyrrolate 0.2mg/ml 1ml Vial ONE (09:30)
[2019-02-28] MEDS ORDERED: Sodium Chloride 10ml vial INJ ONE (09:30)
[2019-02-28] MEDS ORDERED: Acetaminophen (Non formulary) 100 ML IV ONE (09:30)
[2019-02-28] MEDS ORDERED: Gelfoam Absorbable 1gm powder pkt TOPIC ONE (10:03)
[2019-02-28] MEDS ORDERED: Propofol 200mg/20ml IV ONE (10:59)
[2019-02-28] MEDS ORDERED: LR 1000ml 1,000 ML IVLG SCH (11:11)
[2019-02-28] MEDS ORDERED: DiphenhydrAMINE 50mg/ml Inj IVP PRN (11:15)
[2019-02-28] MEDS ORDERED: Meperidine 50mg/ml Inj(FOR RIGORS ONLY) IV PRN (11:15)
[2019-02-28] MEDS ORDERED: Hydromorphone 0.5mg/0.5ml inj IVP PRN (11:15)
[2019-02-28] MEDS ORDERED: Ketorolac 30mg Inj IV PRN (11:15)
[2019-02-28] MEDS ORDERED: Metoclopramide 10mg/2ml Inj IVP PRN (11:15)
[2019-02-28] MEDS ORDERED: Ketorolac 30mg Inj ONE (11:50)
--- NOTE | 2019-02-28 12:47 | Immediate Post-Op Evaluation ---
Immediate Post-Op Evalulation Immediate Post-Op Evalulation Procedure: Posterior cervical laminotomy with decompression and fusion C5 to C7 Date of Evaluation: Feb 28, 2019 Time of Evaluation: 12:45 IV Fluids: 1400 Blood Products: 100 Estimated Blood Loss: 100 Urinary Output: 700 Blood Pressure Systolic: 124 Blood Pressure Diastolic: 74 Pulse Rate: 82 Respiratory Rate: 20 O2 Sat by Pulse Oximetry: 99 Temperature (Fahrenheit): 97.8 Pain Score (1-10): 1 Nausea: No Vomiting: No Complications none Patient Status: reacts, patent, extubated, none Hydration Status: adequate Faraz Lee MD Feb 28, 2019 12:47
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
[2019-02-28] MEDS ORDERED: HYDROcodone/Acetamin 7.5/325 tab ORAL PRN (13:15)
[2019-02-28] MEDS ORDERED: traMADol 50mg tab ORAL PRN ×2 (13:15→13:30)
[2019-02-28] MEDS ORDERED: HYDROcodone/Acetamin 5/325 tab ORAL PRN (13:15)
[2019-02-28] MEDS ORDERED: Milk of Magnesia 30ml Ud ORAL PRN (13:15)
[2019-02-28] MEDS ORDERED: HYDROmorphone 1mg/ml Carpuject IVP PRN (13:15)
[2019-02-28] MEDS ORDERED: Cyclobenzaprine 10mg Tab ORAL PRN (13:30)
--- NOTE | 2019-02-28 13:39 | General Progress Note ---
Progress Note Progress Note Neurosurgery Post-op S/ Comfortable . No ar, pain O/ VS: Last 24 Hour Vital Signs Date Time Temp Pulse Resp B/P (MAP) Pulse Ox O2 Delivery O2 Flow Rate FiO2 02/28/19 13:00 78 16 117/71 100 Simple Mask 6 02/28/19 12:50 82 18 114/66 100 Simple Mask 6 02/28/19 12:47 82 20 99 02/28/19 12:40 97.5 86 20 116/69 100 Simple Mask 6 02/28/19 06:40 Room Air 02/28/19 06:22 97.8 60 18 100/66 (77) 99 Alert and oriented x4 Moves all extremities well Incisions C/D/I Drain minimal output doing well continue C-collar to Floor when cleared by PACU Lauren Cohen MD Feb 28, 2019 13:39
--- NOTE | 2019-02-28 14:23 | NUR ---
CASE MANAGEMENT:REVIEW 48 YR OLD MALE HERE FOR ELECTIVE SURGERY SI: SEVERE NECK PAIN AND CERVICAL RADICULOPATHY 97.8 60 18 100/66 99% ON RA IS; TO SURGERY IV VANCOMYCIN Q12 IVF@100/HR : TO MED/SURG [facility]
--- NOTE | 2019-02-28 14:58 | Diagnostic Imaging Report ---
INDICATION: Pain, intraoperative TECHNIQUE: Intraoperative imaging Fluoroscopy time: 14.2 seconds Total dose: 0.39190 mGym2 Total number of images: 6 COMPARISON: None FINDINGS: Markers project posterior to the CT 3 4 disc and the C6 vertebral body on the lateral localizer images. Subsequent images document placement of posterior fusion hardware at C5, C6, C7. IMPRESSION: Intraoperative imaging, as described
--- NOTE | 2019-02-28 15:30 | NUR ---
NURSE NOTES: Patient arrived to unit via bed at 1500 accompanied by RN. Patient is asleep but arousable to voice, no acute distress noted, reporting no pain at this time. Cervical dressing dry, c/collar in place. IV intact and patent. Patient's belongings checked with second RN Divine, prakash counted with second RN. Prescriptions sent to pharmacy. Call light within reach, VS assessed and stable, will continue to monitor patient.
[2019-02-28] MEDS ORDERED: NS w/KCl 20mEq 1000ml 1,000 ML IV SCH (16:00)
--- NOTE | 2019-02-28 17:30 | NUR ---
NURSE NOTES: Patient became verbally upset with myself and cupola charger insulation, patient claims he was unable to reach call light earlier and claimed "I was yelling for 30 minutes and no one came to help me." Charge nurse and CERAMIC RESEARCH ENGINEER reported they did not hear patient yelling for 30 minutes. Patient stated "you guys need to have someone coming up and down the hughes checking on the patient's every 5 minutes",explained to patient the hourly rounding policy and also educated patient that the CERAMIC RESEARCH ENGINEER was in his room taking his post-op vitals from the time he arrived on the unit. Patient offered room closer to nursing station, to which patient replied "where is your fucking field pipelines supervisor", patient refused all cares stating "I don't want anyone near me until I can speak to the field pipelines supervisor." Prec[employer] Concrete Products Installer Giuliano notified and aware, states she will be up to see the patient.
[2019-02-28] MEDS: Docusate Sod/Senna tab ORAL SCH (18:00)
[2019-02-28] MEDS: Docusate 100mg cap ORAL SCH (18:00)
--- NOTE | 2019-02-28 18:00 | NUR ---
NURSE NOTES: Patient refuses IV fluids and 1800 medications. Patient reports "I don't want anything, I'm drinking and eating fine." Patient education on risks and benefits provided.
--- NOTE | 2019-02-28 18:00 | NUR ---
NURSE NOTES: Pre-op orders still present on eMar. Per pharmacist Blayne, it is responsibility of PACU to d/c pre-op orders and instructed by pharmacist to leave as is.
--- NOTE | 2019-02-28 19:19 | NUR ---
NURSING NATURAL GAS TREATING UNIT OPERATOR NOTE: Spoke to patient, per his request to "speak to someone in charge". Patient Post Operative from O/R today for Posterior Cervical Decompression Surgery. Told me that he was not given his call light or instructions on how to obtain help from nurse upon arrival to . Stated " I was yelling for 30 minutes to try and get a nurse to come help me". Call light was in place at time of this conversation, and I explained to patient that there is a Charge Nurse and Nursing Human Resources Safety Manager on 24 hours a day. Notified Charge Nurse Kash and Primary Nurse Jenny of my conversation with patient.
--- NOTE | 2019-02-28 19:30 | NUR ---
HAND-OFF: Report given to Dk LOPEZ.
--- NOTE | 2019-02-28 19:30 | NUR ---
NURSE NOTES: Report taken from JOHN Alvarado. Patient is awake and in bed, very pleasant, A&Ox4. No signs of distress on room air. Having minimal complaints of pain through posterior cervical site 06/17. Hemovac compressed, draining serosanguineous fluid, continue to monitor. Skin is intact, encourage patient to ambulate. Cervical collar on. IV site c/d/i and patent, saline locked.
[2019-02-28] MEDS: Vancomycin 1 GM in D5W 275 ML IVPB SCH (20:43)
[2019-03-01] MEDS: HYDROcodone/Acetamin 7.5/325 tab ORAL PRN ×2 (03:57→08:21)
[2019-03-01 04:14] VITALS: BP 110/78
[2019-03-01 06:46] LABS: BASOPHILS % (AUTO) 0.9 % (0.0-2.0); EOSINOPHILS % (AUTO) 1.5 % (0.0-3.0); HEMOGLOBIN 11.2 G/DL (14.2-18.0); LYMPHOCYTES % (AUTO) 18.2 % (20.0-45.0); MEAN CORPUSCULAR VOLUME 93 FL (80-99); MONOCYTES % (AUTO) 8.5 % (1.0-10.0); PLATELET COUNT 141 K/UL (150-450); RED BLOOD COUNT 3.11 M/UL (4.70-6.10); WHITE BLOOD COUNT 7.3 K/UL (4.8-10.8)
--- NOTE | 2019-03-01 07:11 | NUR ---
HAND-OFF: Report given to JOHN Tao. Patient awake and stable.
[2019-03-01 07:14] LABS: ANION GAP 8 mmol/L (5-15); BLOOD UREA NITROGEN 10 mg/dL (7-18); CALCIUM 8.1 MG/DL (8.5-10.1); CARBON DIOXIDE 27 MMOL/L (21-32); CHLORIDE 107 MMOL/L (98-107); CREATININE 0.7 MG/DL (0.55-1.30); POTASSIUM 3.8 MMOL/L (3.5-5.1); SODIUM 142 MMOL/L (136-145)
--- NOTE | 2019-03-01 07:30 | NUR ---
NURSE NOTES: Patient is in bed awake and able to verbalize needs. Stable. Denies pain or SOB. Patient encouraged to use call light for assistance, verbalized understanding. Patient is in bed in locked and lowest position with call light within reach. All needs met at this time. Will continue to monitor.
[2019-03-01 08:00] VITALS: BP 105/57
--- NOTE | 2019-03-01 08:15 | NUR ---
NURSING TURNTABLE OPERATOR NOTE: Followed up with patient this morning regarding his complaint about not having a call light to contact nurse and yelling for 30 minutes for help. Patient stated that there have been no further issues, and he has been happy with his care since this incident yesterday afternoon. Notified current Charge Nurse, Primary Care Nurse, and TREAD CUTTER of above, as hand off communication from yesterday
[2019-03-01] MEDS: Docusate Sod/Senna tab ORAL SCH (09:36)
[2019-03-01] MEDS: Docusate 100mg cap ORAL SCH (09:36)
[2019-03-01] MEDS: Vancomycin 1 GM in D5W 275 ML IVPB SCH (09:37)
--- NOTE | 2019-03-01 10:49 | NUR ---
P.T Note: P.T evaluation completed and tx initiated per spinal protocol. Please refer to P.T evaluation for current functional status. Skilled P.T service is warranted ensure safety and compliance with spinal precaution in ADL/functional mobilities.
--- NOTE | 2019-03-01 11:13 | 48 Hour Post Anesthesia Eval ---
Post Anesthesia Evaluation Procedure: Posterior cervical laminotomy with decompression and fusion C5 to C7 Date of Evaluation: Mar 01, 2019 Time of Evaluation: 11:00 Blood Pressure Systolic: 105 0: 57 Pulse Rate: 64 Respiratory Rate: 18 Temperature (Fahrenheit): 98.4 O2 Sat by Pulse Oximetry: 95 Airway: patent Nausea: No Vomiting: No Hydration Status: adequate Cardiopulmonary Status: at baseline Mental Status/LOC: patient returned to baseline Post-Anesthesia Complications: 0 Follow-up care needed: N/A - further care as per primary team Tammi Phelps MD Mar 01, 2019 11:13
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
[2019-03-01 12:00] VITALS: BP 121/74
--- NOTE | 2019-03-01 12:53 | NUR ---
CASE MANAGEMENT:REVIEW 02/28/19 SI: POD #1 S/P HEMILAMINOTOMY 98.4 64 18 105/57 95% ON RA H/H-11.2/29.0 PLT-141 IS: COLACE PO BID ULTRAM PO Q6HRS PRN NORCO PO Q3HRS PRN : MED/SURG STATUS 3 EAST DCP: FROM HOME PLAN: PHYSICAL THERAPY
--- NOTE | 2019-03-01 13:00 | NUR ---
NURSE NOTES: Patient room hot engineering work order placed and engineering called and notified no maintenance yet, 312 room available getting cleaned after the room get cleaned will be transfer to the new room.
--- NOTE | 2019-03-01 13:21 | NUR ---
NURSE NOTES: Patient took his yellow socks off it was dirty clean socks given patient refused to put it on stating I am hot CN discussed the benefit and risk of fall. patient still refused. socks at bedside.
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
--- NOTE | 2019-03-01 14:38 | General Progress Note ---
Progress Note Progress Note Post-op day1 S/ Pain under control. Tolerating po's Ambulated several times. Voided. O/ VS: Last 24 Hour Vital Signs Date Time Temp Pulse Resp B/P (MAP) Pulse Ox O2 Delivery O2 Flow Rate FiO2 03/01/19 12:00 98.2 75 20 121/74 (90) 95 03/01/19 11:13 64 18 95 03/01/19 09:00 Room Air 03/01/19 08:00 98.4 64 18 105/57 (73) 95 03/01/19 04:14 97.7 73 18 110/78 (89) 99 02/28/19 21:00 Room Air 02/28/19 18:00 98.1 92 17 108/73 (85) 97 02/28/19 17:00 97.9 64 17 94/57 (69) 97 02/28/19 16:00 98.1 65 16 95/58 (70) 96 02/28/19 15:30 97.8 61 17 96/60 (72) 96 02/28/19 15:00 97.3 68 17 97/61 (73) 95 On exam: Alert and oriented x 4 Incision i sclean dry and intact HV removed without problems. New dressing applied Motor strong Bilateral arms sensation at baseline Labs: Laboratory Tests Test 03/01/19 05:20 White Blood Count 7.3 K/UL (4.8-10.8) Red Blood Count 3.11 M/UL (4.70-6.10) L Hemoglobin 11.2 G/DL (14.2-18.0) L Hematocrit 29.0 % (42.0-52.0) L Mean Corpuscular Volume 93 FL (80-99) Mean Corpuscular Hemoglobin 35.8 PG (27.0-31.0) H Mean Corpuscular Hemoglobin Concent 38.5 G/DL (32.0-36.0) H Red Cell Distribution Width 11.0 % (11.6-14.8) L Platelet Count 141 K/UL (150-450) L Mean Platelet Volume 6.1 FL (6.5-10.1) L Neutrophils (%) (Auto) 71.0 % (45.0-75.0) Lymphocytes (%) (Auto) 18.2 % (20.0-45.0) L Monocytes (%) (Auto) 8.5 % (1.0-10.0) Eosinophils (%) (Auto) 1.5 % (0.0-3.0) Basophils (%) (Auto) 0.9 % (0.0-2.0) Sodium Level 142 MMOL/L (136-145) Potassium Level 3.8 MMOL/L (3.5-5.1) Chloride Level 107 MMOL/L (98-107) Carbon Dioxide Level 27 MMOL/L (21-32) Anion Gap 8 mmol/L (5-15) Blood Urea Nitrogen 10 mg/dL (7-18) Creatinine 0.7 MG/DL (0.55-1.30) Estimat Glomerular Filtration Rate > 60 mL/min (>60) Glucose Level 104 MG/DL (74-106) Calcium Level 8.1 MG/DL (8.5-10.1) L Magnesium Level 2.2 MG/DL (1.8-2.4) doing well D/cp planning D/c instructions were discussed with pt and nursing in detail. Continue soft Lauren Mullins MD Mar 01, 2019 14:38
--- NOTE | 2019-03-01 15:40 | NUR ---
NURSE NOTES: Patient discharged home as ordered. Stable. Denies pain or SOB. Patient was given thorough discharge instructions by RN and surgeon prior to discharge, patient verbalized understanding. Patient did not want RN to call next of kin to notify them of discharge. Patient was given prescriptions. Patient verbalized that [employer] was called and that he will fill prescriptions from own pharmacy. Patient has all belongings. Patient has all home meds from pharmacy. Patient's skin is clean, dry, and intact. Surgical dressing clean, dry, and intact and changed by surgeon prior to discharge. Patient provided with ice packs and cervical collars as ordered. No IV access. Name band removed. Patient does not want hospital paperwork. Patient assisted out by RN without incident.
[2019-03-01] MEDS ORDERED: Tubing IV Secondary IV ONE (16:30)
[2019-03-01] MEDS ORDERED: NS 275ml ONE (16:30)
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
== END 2019-03-01 16:31 | disposition home or self-care (01) | DRG 473 ==
LOC: SDSOVERFLO 05:47 → 3E 14:59
PROC: 07DR0ZZ Extraction of Iliac Bone Marrow, Open Approach (ICD-10-PCS; principal; 2019-02-28 07:30)
PROC: 0RG207J Fusion of 2 or more Cervical Vertebral Joints with Autologous Tissue Substitute, Posterior Approach, Anterior Column, Open Approach (ICD-10-PCS; principal; 2019-02-28 07:30)
DX: M96.0 Pseudarthrosis after fusion or arthrodesis (principal); Y83.8 Other surgical procedures as the cause of abnormal reaction of the patient, or of later complication, without mention of misadventure at the time of the procedure; M50.122 Cervical disc disorder at C5-C6 level with radiculopathy; V89.2XXS Person injured in unspecified motor-vehicle accident, traffic, sequela
CPT/HCPCS: 36415; 72040; 76000; 80048; 83735; 85025; 86850; 86900; 86901; 87081; C9399; J1580; J2250; J2405; J2710; J7030